=== PATIENT | female | born 1960 | race Two or more races ===

== ENCOUNTER 2023-05-11 12:29 | Emergency (ER) | payer OTHER | END 2023-05-11 13:21 | disposition left against medical advice (07) | LOC: ER 12:29 | DX: Z00.00 Encounter for general adult medical examination without abnormal findings (principal); Z53.21 Procedure and treatment not carried out due to patient leaving prior to being seen by health care provider ==

== ENCOUNTER 2024-02-24 13:03 | Inpatient (IN) | payer MEDICARE, OTHER ==
[~2024-02-24] VITALS: Ht 172.7 cm; Wt 65.5 kg
[2024-02-24] MEDS ORDERED: DEXTROSE (50%) 50ML SYRG IV PRN ×3 (13:45→20:00)
[2024-02-24 14:08] LABS: Basophils # (auto) 0.1 10 ^3/uL (0-0.2); Eosinophils # (auto) 0.1 10 ^3/uL (0-0.8); Monocytes # (auto) 0.3 10 ^3/uL (0-1.3); Nucleated Red Blood Cells % 0.3 %
[2024-02-24 14:11] LABS: Basophils % (auto) 1.3 % (0.0-2.0); Eosinophils % (auto) 1.2 % (0.0-7.0); Hematocrit 44.1 % (36.0-46.0); Hemoglobin 15.3 g/dL (12.2-16.2); Lymphocytes # (auto) 2.1 10 ^3/uL (0.4-5.4); Lymphocytes % (auto) 33.6 % (10.0-50.0); Mean Corpuscular Hemoglobin 31.3 pg (28.0-32.0); Mean Corpuscular Hgb Conc. 34.7 g/dL (32.0-36.0); Mean Corpuscular Volume 90.1 fL (80.0-100.0); Monocytes % (auto) 4.6 % (0.0-12.0); Neutrophils # (auto) 3.7 10 ^3/uL (1.6-8.6); Neutrophils % (auto) 59.3 % (37.0-80.0); Red Blood Cells 4.89 10^6/uL (4.0-5.20); Red Cell Distribution Width 14.1 % (11.8-14.3); White Blood Cell 6.3 10^3/uL (4.4-10.8)
[2024-02-24] MEDS: InsuLIN REG 1unit/0.01ml Soln (100units/ml) IV ONE (14:12)
[2024-02-24] MEDS: SODIUM CHLORIDE 0.9% 1,000 ML IVB ONE (14:12)
[2024-02-24] MEDS: INSULIN LANTUS (GLARGINE) 1 /0.01ml (100units/ml) SC ONE (14:13)
[2024-02-24 14:20] LABS: Albumin 4.4 g/dL (3.2-4.8); Alkaline Phosphatase 110 U/L (46-116); Anion Gap 15 (5-15); Calcium 10.8 mg/dL (8.7-10.4); Carbon Dioxide 12 mmol/L (20-30); Chloride 96 mmol/L (98-107); Sodium 123 mmol/L (136-145)
[2024-02-24 14:21] LABS: Bilirubin, Total 0.4 mg/dL (0.2-1.0); Total Protein 7.2 g/dL (5.7-8.2)
[2024-02-24] MEDS: INSULIN DRIP 100 UNIT/100ML 100 ML IV SCH (14:22)
[2024-02-24 14:30] VITALS: O2SAT 95
[2024-02-24 14:31] LABS: Lactic Acid w/Reflex 2.4 mmol/L (0.4-2.0)
[2024-02-24 14:31] LABS: Urine Bacteria None Seen /hpf (None Seen)
[2024-02-24 14:32] LABS: Alanine Aminotransferase 18 U/L (7-40); Blood Urea Nitrogen 12 mg/dL (9-23); Lipase 42 U/L (12-53); Potassium 4.8 mmol/L (3.5-5.1)
[2024-02-24 14:50] LABS: Aspartate Aminotransferase 21 U/L (13-40)
[2024-02-24 14:51] LABS: Glucose 575 mg/dL (74-106)
[2024-02-24 14:51] LABS: Urine Blood TRACE /uL (Negative); Urine Clarity Clear (Clear); Urine Color Light-Yellow (Yellow); Urine Mucus FEW (None Seen); Urine Protein, UAD Negative (Negative); Urine Urobilinogen Normal (Negative); Urine WBC 1 /hpf (0 - 5); Urine pH 5.5 (5.0-9.0)
[2024-02-24] MEDS: ACCU-CHEK COMFORT CURVE STRIP VI SCH ×3 (15:02→20:17)
[2024-02-24 15:40] LABS: Base Excess -3.8 mmol/L (-2.0-2.0)
[2024-02-24 16:00] VITALS: PULSE 97; RESP 21; O2SAT 97
[2024-02-24] MEDS: MORPHINE SULFATE 4 MG/ML SYR/VIAL IV ONE (16:43)
[2024-02-24] MEDS: ONDANSETRON HCL 4 MG/2 ML VIAL IV ONE (16:43)
[2024-02-24] MEDS ORDERED: NITROGLYCERIN 0.4 MG SL TAB SL PRN (16:45)
[2024-02-24] MEDS: D5W/SOD CHLO 0.9% 1,000 ML IV ONE (16:52)
[2024-02-24] MEDS: PANTOPRAZOLE 40 MG/10 ML VIAL INJ IV ONE (17:40)
[2024-02-24 18:11] LABS: Chloride 100 mmol/L (98-107); Potassium 3.6 mmol/L (3.5-5.1)
[2024-02-24 18:12] LABS: Anion Gap 11 (5-15); Calcium 10.3 mg/dL (8.7-10.4); Carbon Dioxide 18 mmol/L (20-30)
[2024-02-24 18:17] LABS: BUN/Creatinine Ratio 25.5 (10.0-20.0); Blood Urea Nitrogen 14 mg/dL (9-23); Glucose 261 mg/dL (74-106); Sodium 129 mmol/L (136-145)
[2024-02-24 18:30] LABS: Magnesium 1.8 mg/dL (1.6-2.6)
[2024-02-24 18:40] LABS: Phosphorus 3.8 mg/dL (2.4-5.1)
[2024-02-24 20:00] VITALS: PULSE 81; RESP 10; O2SAT 90
[2024-02-24] MEDS: D5W/SOD CHLO 0.9% 1,000 ML IV SCH (20:19)
[2024-02-24] MEDS: InsuLIN REG 1unit/0.01ml Soln (100units/ml) SC SCH (20:24)
[2024-02-24] MEDS: ONDANSETRON HCL 4 MG/2 ML VIAL IV PRN (21:30)
[2024-02-24] MEDS: MORPHINE SULFATE INJ 2 MG/ml SYRG IV PRN (21:33)
[2024-02-24] MEDS: PANTOPRAZOLE 40 MG/10 ML VIAL INJ IV SCH (22:00)
[2024-02-24 22:42] LABS: Hematocrit 40.5 % (36.0-46.0); Hemoglobin 13.9 g/dL (12.2-16.2)
[2024-02-24 22:52] LABS: Chloride 103 mmol/L (98-107); Potassium 3.5 mmol/L (3.5-5.1)
[2024-02-24 22:53] LABS: Anion Gap 9 (5-15); Calcium 9.5 mg/dL (8.7-10.4); Carbon Dioxide 22 mmol/L (20-30)
[2024-02-24 22:58] LABS: BUN/Creatinine Ratio 20.4 (10.0-20.0); Blood Urea Nitrogen 10 mg/dL (9-23); Glucose 218 mg/dL (74-106); Sodium 134 mmol/L (136-145)
[2024-02-25 04:37] LABS: Basophils # (auto) 0.1 10 ^3/uL (0-0.2); Basophils % (auto) 1.1 % (0.0-2.0); Eosinophils # (auto) 0.1 10 ^3/uL (0-0.8); Eosinophils % (auto) 2.1 % (0.0-7.0); Hemoglobin 13.6 g/dL (12.2-16.2); Lymphocytes # (auto) 2.9 10 ^3/uL (0.4-5.4); Lymphocytes % (auto) 49.5 % (10.0-50.0); Mean Corpuscular Hemoglobin 31.3 pg (28.0-32.0); Mean Corpuscular Hgb Conc. 34.8 g/dL (32.0-36.0); Monocytes # (auto) 0.4 10 ^3/uL (0-1.3); Monocytes % (auto) 7.4 % (0.0-12.0); Neutrophils # (auto) 2.3 10 ^3/uL (1.6-8.6); Neutrophils % (auto) 39.9 % (37.0-80.0); Nucleated Red Blood Cells % 0.1 %; Red Blood Cells 4.33 10^6/uL (4.0-5.20); Red Cell Distribution Width 13.8 % (11.8-14.3); White Blood Cell 5.8 10^3/uL (4.4-10.8)
[2024-02-25 04:48] LABS: Alanine Aminotransferase 13 U/L (7-40); Albumin 3.8 g/dL (3.2-4.8); Alkaline Phosphatase 92 U/L (46-116); Anion Gap 9 (5-15); Aspartate Aminotransferase < 8 U/L (13-40); BUN/Creatinine Ratio 19.6 (10.0-20.0); Blood Urea Nitrogen 10 mg/dL (9-23); Calcium 9.3 mg/dL (8.7-10.4); Carbon Dioxide 22 mmol/L (20-30); Chloride 106 mmol/L (98-107); Glucose 180 mg/dL (74-106); Potassium 3.5 mmol/L (3.5-5.1); Sodium 137 mmol/L (136-145)
[2024-02-25 04:49] LABS: Bilirubin, Total 0.3 mg/dL (0.2-1.0); Total Protein 5.9 g/dL (5.7-8.2)
[2024-02-25 08:00] VITALS: PULSE 80; RESP 15; O2SAT 100
[2024-02-25 09:06] VITALS: PULSE 70; RESP 18; O2SAT 94
[2024-02-25 09:10] VITALS: BP 122/63; PULSE 70; RESP 18; TEMP 98.1; O2SAT 94
[2024-02-25] MEDS ORDERED: INSULIN LANTUS (GLARGINE) 1 /0.01ml (100units/ml) SC SCH (10:00)
[2024-02-25] MEDS ORDERED: ENOXAPARIN SOD 40 MG/0.4 ML SYRINGE SC SCH (10:00)
[2024-02-25 10:33] LABS: Hematocrit 38.3 % (36.0-46.0); Hemoglobin 13.1 g/dL (12.2-16.2)
[2024-02-25 10:57] LABS: Chloride 105 mmol/L (98-107); Potassium 3.2 mmol/L (3.5-5.1); Sodium 138 mmol/L (136-145)
[2024-02-25 10:58] LABS: Anion Gap 7 (5-15); Carbon Dioxide 26 mmol/L (20-30)
[2024-02-25 10:59] LABS: Calcium 9.3 mg/dL (8.7-10.4)
[2024-02-25 11:03] LABS: Blood Urea Nitrogen 11 mg/dL (9-23); Glucose 147 mg/dL (74-106)
[2024-02-25] MEDS: POTASSIUM CHL 20 Meq TABLET PO ONE (13:03)
[2024-02-25] MEDS: SODIUM CHLORIDE 0.9% 1,000 ML IV SCH (13:03)
[2024-02-25] MEDS: NICOTINE 21MG/24 HR TOPICAL PATCH TD ONE (13:41)
[2024-02-25 17:15] VITALS: BP 130/74; PULSE 71; RESP 17; TEMP 97.7; O2SAT 97
[2024-02-25 20:00] VITALS: PULSE 76; PULSE 80; RESP 18; O2SAT 97
[2024-02-25 21:00] VITALS: BP 111/64; PULSE 75; RESP 17; TEMP 98.3; O2SAT 94
[2024-02-25] MEDS: INSULIN LANTUS (GLARGINE) 1 /0.01ml (100units/ml) SC SCH (21:34)
[2024-02-25 22:12] LABS: Hematocrit 35.4 % (36.0-46.0); Hemoglobin 12.3 g/dL (12.2-16.2)
[2024-02-26] VITALS (7 sets, daily range): BP systolic 104–157; BP diastolic 57–87; PULSE 62–84; RESP 14–18; TEMP 97.4–98.5; O2SAT 93–98
[2024-02-26 05:49] LABS: Basophils # (auto) 0.1 10 ^3/uL (0-0.2); Basophils % (auto) 0.8 % (0.0-2.0); Eosinophils # (auto) 0.2 10 ^3/uL (0-0.8); Eosinophils % (auto) 2.4 % (0.0-7.0); Hematocrit 36.1 % (36.0-46.0); Hemoglobin 12.5 g/dL (12.2-16.2); Lymphocytes # (auto) 2.8 10 ^3/uL (0.4-5.4); Mean Corpuscular Hgb Conc. 34.7 g/dL (32.0-36.0); Mean Corpuscular Volume 89.3 fL (80.0-100.0); Monocytes # (auto) 0.4 10 ^3/uL (0-1.3); Monocytes % (auto) 5.8 % (0.0-12.0); Neutrophils # (auto) 3.2 10 ^3/uL (1.6-8.6); Red Blood Cells 4.04 10^6/uL (4.0-5.20); Red Cell Distribution Width 13.8 % (11.8-14.3); White Blood Cell 6.6 10^3/uL (4.4-10.8)
[2024-02-26 06:01] LABS: Anion Gap 7 (5-15); Carbon Dioxide 25 mmol/L (20-30); Chloride 108 mmol/L (98-107); Potassium 3.6 mmol/L (3.5-5.1); Sodium 140 mmol/L (136-145)
[2024-02-26 06:02] LABS: Calcium 9.7 mg/dL (8.7-10.4)
[2024-02-26 06:07] LABS: BUN/Creatinine Ratio 17.3 (10.0-20.0); Blood Urea Nitrogen 9 mg/dL (9-23); Glucose 120 mg/dL (74-106); Triglycerides 679 mg/dL (< 150)
[2024-02-26 06:09] LABS: Cholesterol 530 mg/dL (< 200); HDL Cholesterol 33 mg/dL (40-59)
[2024-02-26] MEDS: NICOTINE 21MG/24 HR TOPICAL PATCH TD SCH (08:24)
[2024-02-26] MEDS: ATORVASTATIN 20 MG TAB PO SCH (21:40)
[2024-02-26] MEDS: GABAPENTIN 100 MG CAP PO SCH (21:40)
[2024-02-27] VITALS (8 sets, daily range): BP systolic 111–138; BP diastolic 61–72; PULSE 67–87; RESP 16–20; TEMP 97.4–98.4; O2SAT 92–98
[2024-02-27] MEDS: DOCUSATE SOD 100 MG CAP PO PRN (08:52)
[2024-02-27] MEDS ORDERED: DEXTROSE (50%) 50ML SYRG IV PRN (15:30)
[2024-02-27] MEDS: ACCU-CHEK COMFORT CURVE STRIP VI SCH (17:00)
[2024-02-27] MEDS: InsuLIN REG 1unit/0.01ml Soln (100units/ml) SC SCH ×2 (17:34→21:48)
[2024-02-27] MEDS: FAMOTIDINE 20 MG TAB PO SCH (21:39)
[2024-02-27] MEDS ORDERED: LORazepam 2MG/ML-1ML VIAL IV PRN (23:15)
[2024-02-28] VITALS (8 sets, daily range): BP systolic 105–141; BP diastolic 46–71; PULSE 69–83; RESP 16–19; TEMP 97.6–98.4; O2SAT 92–96
[2024-02-28] MEDS: GABAPENTIN 100 MG CAP PO SCH (00:06)
[2024-02-29] VITALS (8 sets, daily range): BP systolic 114–137; BP diastolic 36–74; PULSE 51–87; RESP 16–18; TEMP 97.5–98.1; O2SAT 94–100
[2024-02-29 04:55] LABS: Chloride 102 mmol/L (98-107); Potassium 3.8 mmol/L (3.5-5.1); Sodium 138 mmol/L (136-145)
[2024-02-29 04:56] LABS: Anion Gap 6 (5-15); Calcium 9.5 mg/dL (8.7-10.4); Carbon Dioxide 30 mmol/L (20-30)
[2024-02-29 05:01] LABS: BUN/Creatinine Ratio 24.6 (10.0-20.0); Blood Urea Nitrogen 15 mg/dL (9-23); Glucose 266 mg/dL (74-106)
[2024-02-29 05:02] LABS: Magnesium 1.7 mg/dL (1.6-2.6)
[2024-03-01] VITALS (7 sets, daily range): BP systolic 100–133; BP diastolic 52–69; PULSE 69–91; RESP 18–20; TEMP 98–98.2; O2SAT 94–96
[2024-03-01] MEDS: INSULIN LANTUS (GLARGINE) 1 /0.01ml (100units/ml) SC SCH (21:51)
[2024-03-02] VITALS (7 sets, daily range): BP systolic 110–137; BP diastolic 54–82; PULSE 78–86; RESP 18–20; TEMP 97.8–98.8; O2SAT 95–98
[2024-03-02] MEDS ORDERED: GADOTERATE MEG 10 MMOL/20ml INJ (0.5MMOL/ml) IV ONE (07:21)
[2024-03-02] MEDS ORDERED: GAB100C PO (11:05)
[2024-03-02] MEDS ORDERED: ATOR20TA50 PO (11:05)
[2024-03-02] MEDS ORDERED: HYDR-4902 PO (11:05)
[2024-03-02] MEDS ORDERED: INSU100I49 SC (11:05)
[2024-03-02] MEDS ORDERED: INSLANTI SC (11:05)
[2024-03-02] MEDS ORDERED: FAMO-12 PO (11:05)
== END 2024-03-02 17:16 | disposition home or self-care (01) | DRG 638 ==
LOC: ER 13:07 → TELE 17:10 → WEST WING 02-25 09:06 → TELE-WESTW 02-25 20:33
PROVIDERS: ADMIT Nurse Practitioner Family; ATTEND Internal Medicine
DX: E11.10 Type 2 diabetes mellitus with ketoacidosis without coma (principal); E87.1 Hypo-osmolality and hyponatremia; K21.9 Gastro-esophageal reflux disease without esophagitis; I10 Essential (primary) hypertension; E11.42 Type 2 diabetes mellitus with diabetic polyneuropathy; E78.2 Mixed hyperlipidemia; F17.210 Nicotine dependence, cigarettes, uncomplicated; Z66 Do not resuscitate; G89.29 Other chronic pain; R32 Unspecified urinary incontinence; M62.58 Muscle wasting and atrophy, not elsewhere classified, other site; M19.032 Primary osteoarthritis, left wrist; M54.12 Radiculopathy, cervical region; Z90.49 Acquired absence of other specified parts of digestive tract; Z90.710 Acquired absence of both cervix and uterus; Z82.0 Family history of epilepsy and other diseases of the nervous system; Z82.49 Family history of ischemic heart disease and other diseases of the circulatory system; Z83.3 Family history of diabetes mellitus; Z79.4 Long term (current) use of insulin; Z79.899 Other long term (current) drug therapy; Z87.440 Personal history of urinary (tract) infections
CPT/HCPCS: 36415; 36600; 72141; 72146; 72147; 73221; 74176; 80048; 80053; 80061; 81001; 82010; 82805; 82962; 83036; 83605; 83690; 83735; 83930; 84100; 84443; 85014; 85018; 85025; 87040; 93005; A4565; G0378; J1815; J2405; J2470; J7042

== ENCOUNTER → 2024-03-13 | Outpatient (CLI) | payer OTHER ==
[~2024-03-13] MED LIST: ATOR20TA50 PO; FAMO-12 PO; GAB100C PO; HYDR-4902 PO; INSLANTI SC; INSU100I49 SC
[2024-03-13 13:32] LABS: Urine Bacteria FEW /hpf (None Seen); Urine Blood Negative /uL (Negative); Urine Budding Yeast OCCASIONAL /hpf (None Seen); Urine Clarity Clear (Clear); Urine Color Light-Yellow (Yellow); Urine Mucus FEW (None Seen); Urine Protein, UAD TRACE (Negative); Urine Specific Gravity 1.021 (1.001-1.035); Urine Urobilinogen Normal (Negative); Urine WBC 3 /hpf (0 - 5)
[2024-03-13 13:52] LABS: Albumin 4.4 g/dL (3.2-4.8); Alkaline Phosphatase 122 U/L (46-116); Anion Gap 7 (5-15); Aspartate Aminotransferase 8 U/L (13-40); BUN/Creatinine Ratio 13.6 (10.0-20.0); Blood Urea Nitrogen 8 mg/dL (9-23); Carbon Dioxide 22 mmol/L (20-30); Chloride 109 mmol/L (98-107); Cholesterol 215 mg/dL (< 200); Glucose 184 mg/dL (74-106); LDL Cholesterol 124 mg/dL (< 100); Potassium 3.9 mmol/L (3.5-5.1); Sodium 138 mmol/L (136-145); Triglycerides 216 mg/dL (< 150)
[2024-03-13 13:53] LABS: Bilirubin, Total 0.3 mg/dL (0.2-1.0); HDL Cholesterol 48 mg/dL (40-59); Total Protein 7.1 g/dL (5.7-8.2)
[2024-03-13 13:56] LABS: Alanine Aminotransferase < 9 U/L (7-40)
== END | disposition home or self-care (01) ==
LOC: LAB 12:31
PROVIDERS: ATTEND Internal Medicine
DX: Z12.11 Encounter for screening for malignant neoplasm of colon (principal)
CPT/HCPCS: 36415; 80053; 80061; 81001; 82043

== ENCOUNTER → 2024-03-18 | Outpatient (CLI) | payer OTHER | END | disposition home or self-care (01) | LOC: LAB 13:33 | PROVIDERS: ATTEND Internal Medicine | DX: E11.22 Type 2 diabetes mellitus with diabetic chronic kidney disease (principal) | CPT/HCPCS: 82274 ==